=== PATIENT | male | born 2000 ===

== ENCOUNTER 2022-01-06 15:58 | Outpatient (REF) | payer BC, SELFPAY ==
[2022-01-08 11:25] LABS: COVID-19 RT-PCR UVMMC Result Negative (Negative)
== END 2022-01-06 15:59 | disposition home or self-care (01) ==
LOC: LBN 15:58
PROVIDERS: Visit Provider Nurse Practitioner Family
DX: Z20.822 Contact with and (suspected) exposure to COVID-19 (principal)
CPT/HCPCS: U0003